=== PATIENT | male | born 1985 | race Caucasian/White ===

== ENCOUNTER 2018-03-30 10:16 | Emergency (ER) | payer OTHER ==
[~2018-03-30] VITALS: Ht 188 cm; Wt 76.2 kg
[2018-03-30] MEDS ORDERED: LIDOCAINE 1%/EPI 1:100,000 20 ML VIAL. INJ ONE (10:45)
[2018-03-30] MEDS ORDERED: HYDROcodone/APAP 5/325MG 1 TAB TABLET PO ONE (10:45)
[2018-03-30] MEDS ORDERED: DIPHTH,PERTUSS(ACELL),TET TOX 0.5 ML DISP.SYRIN. VAX IM ONE (10:45)
--- NOTE | 2018-03-30 10:46 | PHYS DOC ---
Past Medical History Past Medical History: No Pertinent History Past Surgical History: Appendectomy Alcohol Use: None Drug Use: None Adult General Chief Complaint Chief Complaint: LACERATION/AVULSION HPI HPI Patient is a 32 year old female who presents with left anterior forearm laceration that was done on a piece of sheet metal. Review of Systems Review of Systems Constitutional: Denies fever or chills [] Eyes: Denies change in visual acuity, redness, or eye pain [] HENT: Denies nasal congestion or sore throat [] Respiratory: Denies cough or shortness of breath [] Cardiovascular: No additional information not addressed in HPI [] GI: Denies abdominal pain, nausea, vomiting, bloody stools or diarrhea [] : Denies dysuria or hematuria [] Musculoskeletal: Denies back pain or joint pain [] Integument: Forearm laceration. Denies rash or skin lesions [] Neurologic: Denies headache, focal weakness or sensory changes [] All other systems were reviewed and found to be within normal limits, except as documented in this note. Current Medications Current Medications Current Medications Medications (Trade) Dose Ordered Sig/Trae Start Time Stop Time Status Last Admin Dose Admin Acetaminophen/ Hydrocodone Bitart (Lortab 5/325) 1 tab 1X ONCE 03/30/18 10:45 03/30/18 10:46 DC 03/30/18 10:52 1 TAB Diphtheria/ Tetanus/Acell Pertussis (Boostrix) 0.5 ml ONCE ONCE 03/30/18 10:45 03/30/18 10:46 DC 03/30/18 10:53 0.5 ML Lidocaine/ Epinephrine (LIDOCAINE 1%-EPI 1:100,000 Multi-Dose) 20 ml 1X ONCE 03/30/18 10:45 03/30/18 10:46 DC 03/30/18 10:52 20 ML Allergies Allergies Allergies Coded Allergies Type Severity Reaction Last Updated Verified No Known Drug Allergies 03/30/18 No Physical Exam Physical Exam Constitutional: Well developed, well nourished, no acute distress, non-toxic appearance. [] HENT: Normocephalic, atraumatic, bilateral external ears normal, oropharynx moist, no oral exudates, nose normal. [] Eyes: PERRLA, EOMI, conjunctiva normal, no discharge. [] Neck: Normal range of motion, no tenderness, supple, no stridor. [] Cardiovascular:Heart rate regular rhythm, no murmur [] Lungs & Thorax: Bilateral breath sounds clear to auscultation [] Abdomen: Bowel sounds normal, soft, no tenderness, no masses, no pulsatile masses. [] Skin: Laceration Left forearm. Warm, dry, no erythema, no rash. [] Back: No tenderness, no CVA tenderness. [] Extremities: No tenderness, no cyanosis, no clubbing, ROM intact, no edema. [] Neurologic: Alert and oriented X 3, normal motor function, normal sensory function, no focal deficits noted. [] Psychologic: Affect normal, judgement normal, mood normal. [] Current Patient Data Vital Signs Vital Signs Date Time Temp Pulse Resp B/P (MAP) Pulse Ox O2 Delivery O2 Flow Rate FiO2 03/30/18 10:52 17 100 Room Air 03/30/18 10:20 98.1 75 134/84 (101) 98.1 EKG EKG [] Radiology/Procedures Radiology/Procedures Left forearm Impressions: [facility] [id number] [place], [place] [id number] IMAGING REPORT Signed PATIENT: YOSHI SHIELDS ACCOUNT: [id number] : 1985 LOCATION: ER AGE: 32 SEX: M EXAM STATUS: REG ER ORD. PHYSICIAN: SIMONA GUILLORY APRN REASON: laceration anterior forearm PROCEDURE: FOREARM LEFT FOREARM AP LATERAL LEFT Clinical Indication: laceration anterior forearm Comparison: None. Findings: There is no acute fracture or dislocation of the radius or ulna. The elbow and wrist articulations appear normal. There is no soft tissue swelling. There is bandage material along the dorsal distal third of the radius. No radiopaque foreign body is identified. IMPRESSION: No acute fracture. Electronically signed by: Earle Torre MD (03/30/2018 10:57 AM) [id number] DICTATED and SIGNED BY: EARLE TORRE MD DATE: 03/30/18 1055 Course & Med Decision Making Course & Med Decision Making Patient is a 32 year old female who presents with left anterior forearm laceration that was done on a piece of sheet metal. Patient rates his pain a 1 out of 10. There is moderate blood loss. Patient is alert and oriented and denies syncope or dizziness. Vital signs within normal limits. 98.1, 20 respirations, 75 heart rate, 134/84, 98% on room air. Patient is given a Boostrix because he can't remember when his last tetanus shot is. Patient came in with a tourniquet around his left bicep that is cut off and we pack the wound. Does not look to be arterial as the blood is not pulsating out the arm. Bleeding is controlled with packing and is not soaking through the packing after 5 minutes. Bleeding controlled after packing. Wound is flushed and cleaned with chlorhexidine. There is no foreign body seen. Patient only cut through the skin layers did not hit ligament or muscle. Patient to go his fingers and bend his fingers and make a fist and then an unbend his arm at the elbow. There is no muscle or ligament seen or injury. Laceration Repair by me: Anesthesia: 1% lidocaine locally Location: Left forearm Tendon/Joint/Nerves: No injury Foreign body: None detected after copious irrigation and exploration Technique: 9 Simple Interrupted Sutures Complexity: No subcutaneous sutures/mucosal repair/edge excision Post Closure Length: 9 cm Patient's bleeding was easily controlled in the department and there is no indication of anemia. No evidence of compartment syndrome, neurologic injury, vascular injury, open joint, tendon laceration, or foreign body. Patient is appropriate for outpatient follow up. 48 hour wound check. Scar minimization instructions given. Dragon Disclaimer Dragon Disclaimer This electronic medical record was generated, in whole or in part, using a voice recognition dictation system. Departure Departure Impression: Primary Impression: Laceration Disposition: 01 HOME, SELF-CARE Condition: STABLE Referrals: UNKNOWN PCP NAME (PCP) Patient Instructions: Laceration Care, Adult Additional Instructions: Sutures need to be removed in 10 days. Keep clean and covered. Use medication as prescribed. Scripts Ibuprofen (IBUPROFEN) 600 Mg Tablet 600 MG PO PRN Q6HRS PRN for INFLAMMATION, #20 TAB Prov: SIMONA GUILLORY APRN 03/30/18 Hydrocodone/Apap 5-325 (NORCO 5-325 TABLET) 1 Each Tablet 1 TAB PO PRN Q6HRS PRN for PAIN, #8 TAB 0 Refills Prov: SIMONA GUILLORY APRN 03/30/18 SIMONA GUILLORY APRN Mar 30, 2018 10:45
--- NOTE | 2018-03-30 11:02 | RAD ---
FOREARM AP LATERAL LEFT Clinical Indication: laceration anterior forearm Comparison: None. Findings: There is no acute fracture or dislocation of the radius or ulna. The elbow and wrist articulations appear normal. There is no soft tissue swelling. There is bandage material along the dorsal distal third of the radius. No radiopaque foreign body is identified. IMPRESSION: No acute fracture. Electronically signed by: Earle Torre MD (03/30/2018 10:57 AM) [id number]
[2018-03-30] MEDS ORDERED: HYDR-3164 PO (11:45)
[2018-03-30] MEDS ORDERED: IBUP-1007 PO (11:45)
[2018-03-30 11:49] VITALS: BP 124/70
== END 2018-03-30 12:05 | disposition home or self-care (01) ==
LOC: ER 10:16
DX: S51.812A Laceration without foreign body of left forearm, initial encounter (principal); Z90.89 Acquired absence of other organs; W26.8XXA Contact with other sharp object(s), not elsewhere classified, initial encounter; Y93.89 Activity, other specified; Y92.89 Other specified places as the place of occurrence of the external cause; Y99.0 Civilian activity done for income or pay
CPT/HCPCS: 12004; 73090; 90471; 90715; 99283; J3490